=== PATIENT | female | born 1940 | race African-American/Black ===

== ENCOUNTER 2017-03-28 13:57 | Outpatient (CLI) | payer MEDICARE, MEDICAID ==
--- NOTE | 2017-03-28 18:40 | RAD ---
RIGHT FOOT THREE VIEWS 03/28/17 No fracture or other acute bony change was seen. All bones appear intact. There is some soft tissue swelling on the dorsum of the forefoot. A prominent calcaneal spur is noted. IMPRESSION: No acute bony finding. POS: HOME
== END 2017-03-28 13:58 | disposition home or self-care (01) ==
LOC: BURRAD 13:57
PROVIDERS: ATTEND Family Medicine
DX: M79.671 Pain in right foot (principal)

== ENCOUNTER 2017-05-09 16:00 | Emergency (ER) | payer MEDICARE, MEDICAID ==
[2017-05-09] MEDS ORDERED: traMADol HCl 50 MG TAB ONE (16:20)
== END 2017-05-09 16:26 | disposition home or self-care (01) ==
LOC: BURERS 16:00
DX: S13.9XXA Sprain of joints and ligaments of unspecified parts of neck, initial encounter (principal); E11.9 Type 2 diabetes mellitus without complications; E03.9 Hypothyroidism, unspecified; K21.9 Gastro-esophageal reflux disease without esophagitis; E78.5 Hyperlipidemia, unspecified; I10 Essential (primary) hypertension; F32.9 Major depressive disorder, single episode, unspecified; Z87.891 Personal history of nicotine dependence; Z79.899 Other long term (current) drug therapy; Z79.82 Long term (current) use of aspirin; Z79.4 Long term (current) use of insulin; X50.9XXA Other and unspecified overexertion or strenuous movements or postures, initial encounter
CPT/HCPCS: 99283

== ENCOUNTER 2018-06-03 10:20 | Emergency (ER) | payer MEDICARE, MEDICAID ==
[2018-06-03] MEDS ORDERED: traMADol HCl 50 MG TAB ONE (10:44)
== END 2018-06-03 10:56 | disposition home or self-care (01) ==
LOC: BURERS 10:20
DX: S13.9XXA Sprain of joints and ligaments of unspecified parts of neck, initial encounter (principal); E11.9 Type 2 diabetes mellitus without complications; E03.9 Hypothyroidism, unspecified; K21.9 Gastro-esophageal reflux disease without esophagitis; E78.5 Hyperlipidemia, unspecified; I10 Essential (primary) hypertension; E66.9 Obesity, unspecified; F32.9 Major depressive disorder, single episode, unspecified; Z87.891 Personal history of nicotine dependence; X58.XXXA Exposure to other specified factors, initial encounter
CPT/HCPCS: 99283

== ENCOUNTER 2019-07-14 16:02 | Emergency (ER) | payer MEDICARE, MEDICAID | END 2019-07-14 16:35 | disposition home or self-care (01) | LOC: BURERS 16:02 | DX: L73.9 Follicular disorder, unspecified (principal); L50.9 Urticaria, unspecified; E11.9 Type 2 diabetes mellitus without complications; E03.9 Hypothyroidism, unspecified; K21.9 Gastro-esophageal reflux disease without esophagitis; E78.5 Hyperlipidemia, unspecified; I10 Essential (primary) hypertension; F32.9 Major depressive disorder, single episode, unspecified; Z87.891 Personal history of nicotine dependence; Z79.84 Long term (current) use of oral hypoglycemic drugs; Z79.82 Long term (current) use of aspirin; Z79.899 Other long term (current) drug therapy | CPT/HCPCS: 99282 ==

== ENCOUNTER 2019-09-06 12:45 | Emergency (ER) | payer MEDICARE, MEDICAID ==
--- NOTE | 2019-09-06 14:11 | RAD ---
Left lower leg 2 views HISTORY: Leg pain. Lump.. FINDINGS: Tibia and fibula are intact the medial and lateral malleoli are excluded from the frontal v iew. Marker was placed over the anterior aspect of the leg in region of palpable concern. No acute fracture, dislocation, or aggressive osseous erosions, or radiopaque foreign bodies are appa rent. IMPRESSION: No significant abnormalities are demonstrated.
== END 2019-09-06 13:50 | disposition home or self-care (01) ==
LOC: BURERS 12:45
DX: S80.12XA Contusion of left lower leg, initial encounter (principal); E11.9 Type 2 diabetes mellitus without complications; E03.9 Hypothyroidism, unspecified; K21.9 Gastro-esophageal reflux disease without esophagitis; E78.5 Hyperlipidemia, unspecified; I10 Essential (primary) hypertension; E66.9 Obesity, unspecified; F32.9 Major depressive disorder, single episode, unspecified; Z87.891 Personal history of nicotine dependence; W22.8XXA Striking against or struck by other objects, initial encounter; Y93.01 Activity, walking, marching and hiking; Y92.009 Unspecified place in unspecified non-institutional (private) residence as the place of occurrence of the external cause

== ENCOUNTER 2021-03-31 00:48 | Emergency (ER) | payer MEDICARE, OTHER ==
[2021-03-31] MEDS ORDERED: diphenhydrAMINE 25 MG CAP ONE (01:15)
[2021-03-31] MEDS ORDERED: Metoclopramide HCl 10 MG TAB ONE (01:16)
== END 2021-03-31 02:26 | disposition home or self-care (01) ==
LOC: BURERS 00:48
DX: R51.9 Headache, unspecified (principal); E11.9 Type 2 diabetes mellitus without complications; K21.9 Gastro-esophageal reflux disease without esophagitis; E78.5 Hyperlipidemia, unspecified; I10 Essential (primary) hypertension; E66.9 Obesity, unspecified; E03.9 Hypothyroidism, unspecified; Z87.891 Personal history of nicotine dependence
CPT/HCPCS: 70450; Q0163

== ENCOUNTER 2022-10-28 16:31 | Emergency (ER) | payer OTHER ==
[2022-10-28] MEDS ORDERED: Acetaminophen 500 MG TAB ONE (16:54)
[2022-10-28 17:45] LABS: Anion Gap 14 mmol/L (10-20); BUN (Urea Nitrogen) 15 mg/dL (9.8-20.1); Calc. Creatinine Clearance 0 mL/min (70-130); Calcium 8.8 mg/dL (7.8-10.44); Carbon Dioxide 21 mmol/L (23-31); Chloride 105 mmol/L (98-107); Estimated GFR 49; Glucose 138 mg/dL (83-110); Potassium 3.7 mmol/L (3.5-5.1); Sodium 136 mmol/L (136-145)
[2022-10-28 17:47] LABS: Hemoglobin 11.8 g/dL (12.0-16.0); Mean Corpuscular HGB CONC 30.9 g/dL (32.0-36.0); Mean Corpuscular Hemoglobin 27.8 pg (27.0-31.0); Mean Corpuscular Volume 89.8 fl (78.0-98.0); Mean Platelet Volume 6.7 fL (7.4-10.4); Platelet Count 229 10x3/uL (130-400); RBC Distribution Width 15.4 % (11.5-14.5); Red Blood Cell (RBC) Count 4.25 mill/uL (4.20-5.40); White Blood Cell (WBC) Count 8.8 10x3/uL (4.8-10.8)
[2022-10-28 18:08] LABS: Band 4 % (5-11); Lymphocytes 9 % (21-51); MDiff Complete? YES; Monocytes 16 % (0-10); Neutrophil 71 % (42-75)
== END 2022-10-28 18:57 | disposition home or self-care (01) ==
LOC: BURERS 16:31
DX: N39.0 Urinary tract infection, site not specified (principal); E11.22 Type 2 diabetes mellitus with diabetic chronic kidney disease; N18.30 Chronic kidney disease, stage 3 unspecified; E03.9 Hypothyroidism, unspecified; I10 Essential (primary) hypertension; E78.5 Hyperlipidemia, unspecified; K21.9 Gastro-esophageal reflux disease without esophagitis; E66.9 Obesity, unspecified; Z87.891 Personal history of nicotine dependence; Z79.82 Long term (current) use of aspirin; Z79.899 Other long term (current) drug therapy; Z79.4 Long term (current) use of insulin; Z79.84 Long term (current) use of oral hypoglycemic drugs
CPT/HCPCS: 36415; 71045; 80048; 83605; 85025; 87040; 87081; 87430; 87804; 87807; U0003; U0005

== ENCOUNTER 2024-03-25 11:40 | Outpatient (CLI) | payer OTHER, MEDICAID | END 2024-03-25 11:41 | disposition home or self-care (01) | LOC: BURRAD 11:40 | PROVIDERS: ATTEND Student in an Organized Health Care Education/Training Program | DX: R09.89 Other specified symptoms and signs involving the circulatory and respiratory systems (principal) | CPT/HCPCS: 71046 ==